=== PATIENT | female | born 1955 | race Caucasian/White ===

== ENCOUNTER → 2016-08-25 | Outpatient (CLI) | payer MEDICARE ==
[2016-05-17 11:00] VITALS: BP 155/78
--- NOTE | 2016-08-25 15:31 | RAD ---
DATE: 08/25/2016. EXAM: DIGITAL SCREEN BILAT W/CAD HISTORY: Routine screening. COMPARISON: 10/23/2013. This study was interpreted with the benefit of Computerized Aided Detection (CAD). FINDINGS: Moderate density is noted bilaterally. The overall parenchymal pattern appears stable. No dominant mass or malignant appearing microcalcifications are seen. The axillae are unremarkable. IMPRESSION: No mammographic features suspicious for malignancy are identified. BI-RADS CATEGORY: 1 NEGATIVE RECOMMENDED FOLLOW-UP: 12M 12 MONTH FOLLOW-UP PQRS compliance statement: Patient information was entered into a reminder system with a target due date for the next mammogram. Mammography is a sensitive method for finding small breast cancers, but it does not detect them all and is not a substitute for careful clinical examination. A negative mammogram does not negate a clinically suspicious finding and should not result in delay in biopsying a clinically suspicious abnormality. "Our facility is accredited by the [employer] Mammography Program."
== END | disposition home or self-care (01) ==
LOC: MAMMO 08:19
DX: Z12.31 Encounter for screening mammogram for malignant neoplasm of breast (principal)
CPT/HCPCS: G0202; 77067

== ENCOUNTER → 2016-09-08 | Day surgery (SDC) | payer MEDICARE ==
[~2016-09-08] MED LIST: ALBU2.5V13 NEB; ALBUTEROL SULFATE 2.5 MG/3 ML NEBU. NEB ONE; ALBUTEROL SULFATE 2.5 MG/3 ML NEBU. ONE; ALPR2TAB2 PO; ASPI-482 PO; CETI10TA22 PO; CHOL10003 PO; FAMO20TA5 PO; FENTANYL PF 100 MCG/2 ML VIAL. IV PRN; GABA-586 PO; HYDR-2672 PO; HYDROMORPHONE 2 MG/ML VIAL. IV PRN; IV RINGERS,LACTATED 1000ML 1,000 ML IV SCH; LIDOCAINE 1% 1 ML SYRINGE. ID PRN; METF500T4 PO; MORPHINE SULFATE 2 MG/ML DISP.SYRIN. IV PRN; NITR0.4T SL; ONDANSETRON PF 4 MG/2 ML VIAL. IV PRN; PROCHLORPERAZINE 10 MG/2 ML VIAL. IV PRN; PROPOFOL 20 ML IV ONE
[2016-09-08 13:50] VITALS: BP 113/65
--- NOTE | 2016-09-08 14:17 | OP ---
DATE OF SURGERY: 09/08/2016 INDICATIONS: Possible endobronchial lesion abnormal CT chest. Informed consent was obtained from the patient. All risks and benefits were explained and she agreed to proceed with the procedure. Propofol was used by anesthesia for sedation. Bronch was introduced through the left nostril. The upper area was passed. Vocal cords moves equally with respiration. The trachea was entered. No tracheal lesions seen. The right lung was first examined. All subsegments of right upper, right middle and right lower lobe were visualized. No endobronchial lesions seen. No significant secretions seen. Bronchoscope was introduced into the left lung. The left upper lobe bronchial stump was tent from prior surgery. There was slight anatomical distortion and lingular segment appears to be slightly narrowed at the opening, but further inspection revealed mucoid secretions in the subsegments. Secretions were removed and bronchoalveolar lavage performed from the lingula. No definite endobronchial lesions seen. Left lower lobe was patent. The patient tolerated the procedure well. IMPRESSION: 1. No definite endobronchial lesion seen in the lingula or left lower lobe. 2. The bronchial stump was patent in the left upper lobe. 3. Mucoid impaction seen in the lingular subsegment and bronchoalveolar lavage performed from this area and this specimen sent for cultures. No definite endobronchial lesion seen. 4. Follow the culture results and cytology. GISELA ARANA MD DR: WILLIAM/buck JOB#: [id number] / [id number]
--- NOTE | 2016-09-09 17:24 | PATHOLOGY ---
CYTOPATHOLOGY REPORT CLINICAL HISTORY: Lung nodule/Abnormal CT bronchial lesion. SPECIMEN(S) RECEIVED: A.Bronchoalveolar lavage, Lingula FINAL DIAGNOSIS: Lingula bronchoalveolar lavage, ThinPrep: - No malignant cells identified. - Few bronchial epithelial cells, squamous epithelial cells, and pulmonary macrophages are identified within a background of few inflammatory cells. (JPM:mgr; d/t: 09/09/16) PATHOLOGIST: Sujit Lemons M.D. REPORT ELECTRONICALLY SIGNED BY: Sujit Lemons M.D. DATE/TIME: 09/09/2016 17:22 GROSS PATHOLOGY: A. Bronchoalveolar lavage, Lingula: The specimen is submitted unfixed, labeled "Arnold Paulson". Received by the Cytology Department is two mL of clear colorless fluid. One ThinPrep slide was prepared. (clt 09.08.2016) FILM DEVELOPING MACHINE OPERATOR(S): MAYO Shannon(ASCP) INITIAL CPT CODE(S): A; 08215 Professional services performed [place] [address] Technical services performed by [facility] at [address] [place] [address], [address] [address]. PATIENT: ARNOLD PAULSON /AGE: 1005/24/1955 (Age: 61) SEX: F PATIENT #: [id number] ALT CASE #: SPECIMEN COLLECTION DATE: 09/08/2016 SPECIMEN RECEIVED DATE: 09/08/[address] [facility] [address] [place] [address], [address] [place] [address] PHONE: [phone] DIRECTOR: Ravi Smith M.D. * * * END OF REPORT * * *
== END | disposition home or self-care (01) ==
LOC: SURG 12:15
PROVIDERS: ATTEND Internal Medicine Critical Care Medicine
DX: R91.8 Other nonspecific abnormal finding of lung field (principal); I50.9 Heart failure, unspecified; I10 Essential (primary) hypertension; J44.9 Chronic obstructive pulmonary disease, unspecified; K21.9 Gastro-esophageal reflux disease without esophagitis; D21.9 Benign neoplasm of connective and other soft tissue, unspecified; Z90.710 Acquired absence of both cervix and uterus; E11.9 Type 2 diabetes mellitus without complications; F41.9 Anxiety disorder, unspecified; F32.9 Major depressive disorder, single episode, unspecified; F17.200 Nicotine dependence, unspecified, uncomplicated
CPT/HCPCS: 31622; 87102; 87116; 87205; 94640; J2704; 87070; 88112